=== PATIENT | male | born 1940 | race Caucasian/White ===

== ENCOUNTER 2019-01-22 06:34 | Observation (INO) | payer MEDICARE ==
[2019-01-20 10:30] VITALS: BP 143/74
[2019-01-20 10:58] LABS: BASOPHILS % (AUTO) 0.4 % (0.0-5.0); EOSINOPHILS % (AUTO) 1.8 % (0.0-8.0); LYMPHOCYTES % (AUTO) 17.4 % (21.0-51.0); MEAN CORPUSCULAR HEMOGLOBIN 26.2 pg (27.0-33.0); MEAN CORPUSCULAR HGB CONC 32.1 g/dL (32.0-36.0); MEAN CORPUSCULAR VOLUME 81.6 fL (79-99); MONOCYTES % (AUTO) 9.4 % (3.0-13.0); PLATELET COUNT (AUTO) 216 K/uL (130-400); RED BLOOD CELL COUNT(AUTO) 5.02 MIL/uL (4.50-6.20); RED CELL DISTRIBUTION WIDTH 15.7 % (11.0-15.5); WHITE BLOOD COUNT (AUTO) 4.9 K/uL (4.8-10.8)
[2019-01-20 11:01] LABS: BILIRUBIN,URINE Negative (NEGATIVE); COLOR,URINE Yellow (YELLOW); GLUCOSE, URINE (UA) 250 mg/dL (NEGATIVE); KETONES,URINE Negative (NEGATIVE); LEUKOCYTE ESTERASE ,URINE Moderate (NEGATIVE); NITRATE,URINE Negative (NEGATIVE); OCCULT BLOOD,URINE Negative (NEGATIVE); PH,URINE 5.5 (5.0-8.0); PROTEIN,URINE Negative (NEGATIVE); UROBILINOGEN,URINE 0.2 mg/dL (0.2-1.0)
[2019-01-20 11:04] LABS: APPEARANCE,URINE CLEAR (CLEAR)
[2019-01-20 11:08] LABS: CREATININE 1.2 mg/dL (0.5-1.5); POTASSIUM 4.8 mmol/L (3.5-5.1)
[2019-01-20 11:35] LABS: INR 0.96 (0.85-1.15); PARTIAL THROMBOPLASTIN TIME 26.8 SEC (26.3-35.5); PROTHROMBIN TIME 10.1 SEC (9.6-11.6)
[~2019-01-22] VITALS: Ht 177.8 cm; Wt 131.6 kg
[2019-01-22] VITALS (12 sets, daily range): BP systolic 125–180; BP diastolic 63–105
[~2019-01-22 06:34] MED LIST: CYAN10007 IJ; DIPH25 PO; LISI-613 PO; METF-444 PO; PRED20TA3 PO; RIVA20TA PO; TRIA10.8 NS; [UNRECOGNIZED DRUG - OTHER] SL; vitamin b complex SL
--- NOTE | 2019-01-22 06:38 | NUR ---
PRE-PROCEDURE RECEIVED TO DAY 8 VIA WALKING WITH CANE FOR [facility]. CONNECTED TO CONTINUOUS CARDIOPULMONARY MONITORING. SIDE RAILS UP X2, BED IN LOWEST POSITION, CALL LIGHT W/IN REACH. Addendum: 01/22/19 at 0924 by DAVIAN OTERO RN RN AWAKE IN NO ACUTE DISTRESS. DENIES PAIN.
[2019-01-22] MEDS ORDERED: SODIUM CHLORIDE 0.9% 1000ML 1,000 ML IV ONE (07:31)
[2019-01-22] MEDS ORDERED: METO-408 PO (08:40)
[2019-01-22] MEDS ORDERED: DiphenhydrAMINE HCL 50 MG/ML VIAL ONE (12:13)
[2019-01-22] MEDS ORDERED: METHYLPREDNISOLONE SOD SUCC 125MG/2ML VIAL ONE (12:14)
--- NOTE | 2019-01-22 12:20 | NUR ---
PROCEDURE TRANSFERRED TO [place] VIA BED BY BIRGIT VOGT.
[2019-01-22] MEDS ORDERED: LIDOCAINE HCL 2% 20ML ONE (12:27)
[2019-01-22] MEDS ORDERED: NITROGLYCERIN 5 MG/ML 10 ML VIAL IV ONE (12:27)
[2019-01-22] MEDS ORDERED: IOHEXOL-350 50ML VIAL IV ONE (12:27)
[2019-01-22] MEDS ORDERED: HEPARIN SODIUM 1000UNIT/ML 10ML VIAL ONE (12:27)
[2019-01-22] MEDS ORDERED: IOHEXOL 350 MG/ML 100ML INFUS..BTL IV ONE (12:27)
[2019-01-22] MEDS ORDERED: SODIUM BICARB 50MEQ 50ML VIAL ONE (12:27)
[2019-01-22] MEDS ORDERED: MEPERIDINE-PF 25 MG/ML SYG ONE ×2 (12:41→13:12)
[2019-01-22] MEDS ORDERED: MIDAZOLAM HCL 1 MG/ML 2ML VIAL ONE ×2 (12:41→13:12)
[2019-01-22] MEDS ORDERED: ATROPINE SULFATE 0.1 MG/ML 10 ML SYG IVP ONE (13:25)
[2019-01-22] MEDS ORDERED: ASPIRIN 325MG EC TAB 325 MG TABLET.DR PO ONE (13:46)
[2019-01-22] MEDS ORDERED: CLOPIDOGREL BISULFATE 300 MG TAB ONE (13:46)
[2019-01-22] MEDS: SODIUM CHLORIDE 0.9% 1000ML 1,000 ML IV SCH ×2 (13:52→17:07)
[2019-01-22] MEDS ORDERED: ALPRAZOLAM 0.5 MG TABLET PO PRN (14:00)
[2019-01-22] MEDS ORDERED: ACETAMINOPHEN-CODEINE 300/30MG TAB PO PRN ×2 (14:00)
[2019-01-22] MEDS ORDERED: CLOPIDOGREL BISULFATE 300 MG TAB PO SCH (14:00)
[2019-01-22] MEDS ORDERED: ONDANSETRON HCL 4 MG/2 ML VIAL IVP PRN (14:00)
[2019-01-22] MEDS ORDERED: TEMAZEPAM 30 MG CAP PO PRN (14:00)
[2019-01-22] MEDS ORDERED: NITROGLYCERIN 50 MG/D5% WATER 1 BOT IV PRN (14:00)
--- NOTE | 2019-01-22 14:25 | NUR ---
EDUCATION UPDATED THAT PT WOULD BE ADMITTED TO ROOM 220.
--- NOTE | 2019-01-22 14:52 | NUR ---
RECEIVED TO ROOM 220 VIA BED ACCOMPANIED BY Evgeny ACOSTA RN. PT. AAOX3, RESP.'S EVEN AND UNLABORED. DENIES ANY C/O SOB, DENIES ANY CURRENT PAIN. INSTRUCTED ON STRICT BR PER MD ORDERS, VERBALIZED UNDERSTANDING. RIGHT GROIN WITH DRSG IN PLACE, D/I; AREA SOFT, NO ECCHYMOSIS OR HEMATOMA NOTED. BED PLACED IN REVERSE [place] POSITION FOR PT. COMFORT. CALL LIGHT WITHIN REACH, VERBALIZED ABILITY TO USE.
[2019-01-22 15:24] LABS: CHOLESTEROL 193 mg/dL (<200); HDL CHOLESTEROL 35 mg/dL (29-71); LDL DIRECT 157 mg/dL (0-99); TRIGLYCERIDES 62 mg/dL (30-200)
--- NOTE | 2019-01-22 15:30 | NUR ---
CONT.'S ON BR W/O C/O. RIGHT GROIN UNCHANGED. CALL LIGHT WITHIN REACH.
--- NOTE | 2019-01-22 16:10 | NUR ---
LATE ENTRY: -NOTIFIED DR. GAMBINO, AT NURSE'S STATION, RE:PT. ADMITTED TO HIS SERVICES. DR. GAMBINO VERBALIZED UNDERSTANDING AND STATES WILL BE IN TO SEE PT.
--- NOTE | 2019-01-22 16:30 | NUR ---
CONT.'S ON BR. RIGHT GROIN UNCHANGED. CALL LIGHT WITHIN REACH.
[2019-01-22] MEDS ORDERED: HYDRALAZINE HCL 20 MG/ML VIAL IV PRN (16:45)
--- NOTE | 2019-01-22 17:10 | NUR ---
BED CONT.'S IN REVERSE [place] POSITION. INC. HOB TO 15 DEGREES FOR DINNER. ASSISTED TO SET UP FOR DINNER BY SANDRINE OLIVEROS. CALL LIGHT WITHIN REACH.
[2019-01-22] MEDS ORDERED: DOCU250C14 PO ×2 (18:46)
--- NOTE | 2019-01-22 20:00 | NUR ---
ASSESSMENT PATIENT IS AAOX3. PATIENT DENIES CHEST PAIN AND SHORTNESS OF BREATH. ON ROOM AIR. RESPIRATIONS UNLABORED. A-FIB HR 70'S TO 80'S. S/P LEFT HEART CATH. RT. GROIN SOFT. DRESSING MARKED - UNCHANGED. NO HEMATOMA NOTED. BEDREST UNTIL 2029. ADVISED PATIENT NOT TO BEND OR LIFT RT LEG. PATIENT VERBALIZED UNDERSTANDING. SEE DOCUMENTATION FOR FULL ASSESSMENT. CALL LIGHT WITHIN REACH. INSTRUCTED PATIENT TO CALL IF ASSISTANCE IS NEEDED.
--- NOTE | 2019-01-22 20:30 | NUR ---
BEDREST OVER. SITE SOFT. NO HEMATOMA. NOTED. PATIENT ASSISTED TO BATHROOM BY RADHA. PCP.
[2019-01-22] MEDS ORDERED: SIMVASTATIN 10 MG TABLET PO SCH (21:00)
[2019-01-22] MEDS: INSULIN HUMULIN R 100 UNIT/ML 3ML SQ SCH (22:03)
--- NOTE | 2019-01-23 02:15 | NUR ---
RT. ELZA BARAJAS.
[2019-01-23] MEDS: SODIUM CHLORIDE 0.9% 1000ML 1,000 ML IV SCH (03:12)
[2019-01-23 03:18] VITALS: BP 122/62
[2019-01-23 03:49] LABS: HEMATOCRIT 37.5 % (42-54); MEAN CORPUSCULAR HEMOGLOBIN 26.6 pg (27.0-33.0); MEAN CORPUSCULAR HGB CONC 33.1 g/dL (32.0-36.0); MEAN CORPUSCULAR VOLUME 80.5 fL (79-99); PLATELET COUNT (AUTO) 215 K/uL (130-400); RED BLOOD CELL COUNT(AUTO) 4.66 MIL/uL (4.50-6.20); RED CELL DISTRIBUTION WIDTH 15.9 % (11.0-15.5); WHITE BLOOD COUNT (AUTO) 9.2 K/uL (4.8-10.8)
[2019-01-23 04:00] LABS: CREATININE 1.2 mg/dL (0.5-1.5); POTASSIUM 4.6 mmol/L (3.5-5.1)
[2019-01-23] MEDS: INSULIN HUMULIN R 100 UNIT/ML 3ML SQ SCH ×2 (07:28→12:01)
[2019-01-23 07:47] VITALS: BP 128/66
--- NOTE | 2019-01-23 08:30 | NUR ---
RESTING IN BED WITH HOB AT 30 DEGREES, RESP.'S EVEN AND UNLABORED. AAOX3. DENIES ANY C/O SOB, DENIES ANY CURRENT PAIN. RIGHT GROIN SOFT, NO ECCHYMOSIS OR HEMATOMA NOTED. FEET WARM, PP'S (+) BILATERALLY; DENIES ANY C/O NUMBNESS OR TINGLING TO FEET. COMPLETE ASSESSMENT DONE. CALL LIGHT WITHIN REACH, VERBALIZED ABILITY TO USE. BED LOW, SIDE RAILS UP X2.
[2019-01-23] MEDS ORDERED: CLOPIDOGREL BISULFATE 75 MG TAB PO SCH (09:00)
[2019-01-23] MEDS ORDERED: ASPIRIN 81MG TAB.CHEW PO SCH (09:00)
[2019-01-23] MEDS ORDERED: PANTOPRAZOLE SODIUM 40 MG TABLET.DR PO SCH (09:00)
[2019-01-23] MEDS ORDERED: DOCUSATE NA 100MG/10ML UDCUP PO SCH (09:30)
[2019-01-23] MEDS ORDERED: METOPROLOL TARTRATE 25 MG TAB PO SCH (09:30)
[2019-01-23] MEDS ORDERED: VITAMIN B COMPLEX 1 CAPSULE PO SCH (09:30)
[2019-01-23] MEDS ORDERED: DOCUSATE NA 100MG/10ML UDCUP PO PRN (09:30)
[2019-01-23] MEDS ORDERED: FLUTICASONE PROPIONATE 50MCG/SPRAY 16 GM BOTTLE EN SCH (09:45)
[2019-01-23 11:50] VITALS: BP 148/74
--- NOTE | 2019-01-23 12:05 | NUR ---
SITTING UP EATING LUNCH, W/O C/O. CALL LIGHT WITHIN REACH.
--- NOTE | 2019-01-23 13:40 | NUR ---
DR. Chris SIMS IN ROOM SPEAKING WITH PT. QUESTIONS ANSWERED BY DR. SIMS. SPOUSE AND VISITOR AT BEDSIDE.
[2019-01-23] MEDS ORDERED: [UNRECOGNIZED DRUG - OTHER] SL SCH (14:00)
--- NOTE | 2019-01-23 14:25 | NUR ---
HL REMOVED, CATHETER INTACT. DISCHARGE INSTRUCTIONS GIVEN, VERBALIZED UNDERSTANDING.
--- NOTE | 2019-01-23 14:40 | NUR ---
DISCHARGED HOME VIA W/C WITH BELONGINGS ACCOMPANIED BY Andreas ARAGON, PCP AND PT.'S FAMILY MEMBERS.
[2019-01-24] MEDS ORDERED: LISINOPRIL 20 MG TABLET PO SCH (09:00)
[2019-02-22] MEDS ORDERED: CYANOCOBALAMIN (VITAMIN B-12) 1000 MCG/ML 1ML VIAL IM SCH (09:00)
== END 2019-01-23 15:05 | disposition home or self-care (01) ==
LOC: DAH 06:34 → DAHIP 06:35 → DAH 06:35 → 2DH 15:11
PROVIDERS: ADMIT Internal Medicine; ATTEND Internal Medicine
DX: I25.119 Atherosclerotic heart disease of native coronary artery with unspecified angina pectoris (principal); E11.9 Type 2 diabetes mellitus without complications; E78.5 Hyperlipidemia, unspecified; I48.2 Chronic atrial fibrillation; I11.0 Hypertensive heart disease with heart failure; I50.42 Chronic combined systolic (congestive) and diastolic (congestive) heart failure; Z85.46 Personal history of malignant neoplasm of prostate; Z79.899 Other long term (current) drug therapy; Z88.8 Allergy status to other drugs, medicaments and biological substances; Z88.0 Allergy status to penicillin
CPT/HCPCS: 36415 ×3; 71045; 80048 ×2; 80061; 81003; 82948 ×5; 85025; 85027; 85610; 85730; 93005; 93458; 96372 ×2; 96374; A4606; C1725; C1760; C1769; C1874 ×3; C1887; C1894; C9600; G0378 ×32; J0360; J1200; J1644 ×2; J1815 ×2; J2175 ×2; J2250 ×2; J2930; J3490 ×3; J7030 ×2; Q9965 ×2; Q9967 ×2; 99156; 99157; J0461

== ENCOUNTER 2019-03-16 07:16 | Observation (INO) | payer MEDICARE ==
[2019-03-12 12:03] LABS: BASOPHILS % (AUTO) 0.3 % (0.0-5.0); EOSINOPHILS % (AUTO) 2.1 % (0.0-8.0); HEMATOCRIT 32.3 % (42-54); LYMPHOCYTES % (AUTO) 14.4 % (21.0-51.0); MEAN CORPUSCULAR HEMOGLOBIN 26.4 pg (27.0-33.0); MEAN CORPUSCULAR HGB CONC 32.4 g/dL (32.0-36.0); MEAN CORPUSCULAR VOLUME 81.5 fL (79-99); MONOCYTES % (AUTO) 11.5 % (3.0-13.0); NEUTROPHILS % (AUTO) 71.7 % (40.0-77.0); PLATELET COUNT (AUTO) 219 K/uL (130-400); RED BLOOD CELL COUNT(AUTO) 3.96 MIL/uL (4.50-6.20); RED CELL DISTRIBUTION WIDTH 15.6 % (11.0-15.5); WHITE BLOOD COUNT (AUTO) 5.3 K/uL (4.8-10.8)
[2019-03-12 12:10] LABS: BILIRUBIN,URINE NEGATIVE (NEGATIVE); COLOR,URINE YELLOW (YELLOW); GLUCOSE, URINE (UA) 250 mg/dL (NEGATIVE); KETONES,URINE NEGATIVE (NEGATIVE); LEUKOCYTE ESTERASE ,URINE NEGATIVE (NEGATIVE); NITRATE,URINE NEGATIVE (NEGATIVE); OCCULT BLOOD,URINE NEGATIVE (NEGATIVE); PROTEIN,URINE TRACE mg/dL (NEGATIVE)
[2019-03-12 12:15] LABS: INR 0.98 (0.85-1.15); PARTIAL THROMBOPLASTIN TIME 26.6 SEC (26.3-35.5); PROTHROMBIN TIME 10.3 SEC (9.6-11.6)
[2019-03-12 12:17] LABS: CREATININE 1.1 mg/dL (0.5-1.5); POTASSIUM 5.1 mmol/L (3.5-5.1)
[2019-03-12 12:24] VITALS: BP 144/70
[2019-03-12 12:46] LABS: APPEARANCE,URINE CLEAR (CLEAR); BACTERIA,URINE Rare /HPF (None Seen); RBC,URINE 0-1 /HPF (0-1); SQUAMOUS EPITHELIAL CELL,UR 0-2 /HPF (0-2); WBC,URINE 0-1 /HPF (0-1)
--- NOTE | 2019-03-15 11:14 | NUR ---
IODINE ALLERGY DASHA GUTIERREZ NOTIFIED OF PT'S IODINE ALLERGY, PRESCRIBED PRE MED TO TAKE AT HOME. MAY GIVE SOLU MEDROL 125MG IVP X1 AND BENADRYL 50MG IVP X1 FIRESTOPPER TECHNICIAN TO VIDEO EFFECTS EDITOR.
[~2019-03-16] VITALS: Ht 180.3 cm; Wt 126.9 kg
[2019-03-16] VITALS (22 sets, daily range): BP systolic 120–195; BP diastolic 57–105
[~2019-03-16 07:16] MED LIST changes: +ASPI-555 PO; +CLOP75TA14 PO; -CYAN10007 IJ; -DIPH25 PO; +DIPH25CA85 PO; +DOCU-272 PO; +DiphenhydrAMINE HCL 50 MG/ML VIAL IVP SCH; -METF-444 PO; +METF500T7 PO; +METHYLPREDNISOLONE SOD SUCC 125MG/2ML VIAL IVP SCH; +METO-408 PO; -RIVA20TA PO; +ROSU5TAB11 PO; +SODIUM CHLORIDE 0.9% 500ML 500 ML IV SCH; -TRIA10.8 NS; -[UNRECOGNIZED DRUG - OTHER] SL; -vitamin b complex SL
[2019-03-16] MEDS ORDERED: SODIUM CHLORIDE 0.9% 1000ML 1,000 ML IV ONE (07:44)
[2019-03-16] MEDS ORDERED: INSULIN HUMULIN R 100 UNIT/ML 3ML ONE (08:11)
[2019-03-16] MEDS ORDERED: METHYLPREDNISOLONE SOD SUCC 125MG/2ML VIAL ONE (08:36)
[2019-03-16] MEDS ORDERED: DiphenhydrAMINE HCL 50 MG/ML VIAL ONE (08:37)
[2019-03-16] MEDS ORDERED: IOHEXOL 350 MG/ML 100ML INFUS..BTL IV ONE (10:44)
[2019-03-16] MEDS ORDERED: HEPARIN SODIUM 1000UNIT/ML 10ML VIAL ONE (10:44)
[2019-03-16] MEDS ORDERED: SODIUM BICARB 50MEQ 50ML VIAL ONE (10:44)
[2019-03-16] MEDS ORDERED: IOHEXOL-350 50ML VIAL IV ONE (10:44)
[2019-03-16] MEDS ORDERED: NITROGLYCERIN 5 MG/ML 10 ML VIAL IV ONE (10:44)
[2019-03-16] MEDS ORDERED: LIDOCAINE HCL 2% 20ML ONE (10:44)
[2019-03-16] MEDS ORDERED: MIDAZOLAM HCL 1 MG/ML 2ML VIAL ONE (11:26)
[2019-03-16] MEDS ORDERED: FENTANYL CITRATE PF 50 MCG/1 ML 2ML VIAL ONE (11:27)
--- NOTE | 2019-03-16 11:28 | NUR ---
PROCEDURE PT TAKEN TO VIDEO RECORDER MECHANIC FOR LHC, NO DISTRESS NOTED. SPOUSE AT BEDSIDE.
[2019-03-16] MEDS: INSULIN HUMULIN R 100 UNIT/ML 3ML SQ SCH ×3 (11:30→22:38)
[2019-03-16] MEDS ORDERED: PROPOFOL 1000 MG/100 ML 100 ML IV ONE (11:30)
[2019-03-16] MEDS ORDERED: ROCURONIUM BROMIDE 10MG/1ML 5ML VL ONE (11:51)
[2019-03-16] MEDS ORDERED: KETAMINE HCL 100 MG/ML 5ML VIAL IJ ONE (12:00)
[2019-03-16] MEDS ORDERED: ATROPINE SULFATE 0.1 MG/ML 10 ML SYG IVP ONE (12:02)
[2019-03-16] MEDS ORDERED: IOHEXOL-350 75 ML VIAL IV ONE (12:33)
[2019-03-16] MEDS ORDERED: GLYCOPYRROLATE 1 MG/5 ML SYRINGE ONE (12:51)
[2019-03-16] MEDS ORDERED: NEOSTIGMINE 5MG/5ML SYR IV ONE (12:51)
[2019-03-16] MEDS ORDERED: ALPRAZOLAM 0.5 MG TABLET PO PRN (13:00)
[2019-03-16] MEDS ORDERED: NITROGLYCERIN 50 MG/D5% WATER 1 BOT IV PRN (13:00)
[2019-03-16] MEDS ORDERED: ONDANSETRON HCL 4 MG/2 ML VIAL IVP PRN (13:00)
[2019-03-16] MEDS ORDERED: TEMAZEPAM 30 MG CAP PO PRN (13:00)
[2019-03-16] MEDS ORDERED: ACETAMINOPHEN-CODEINE 300/30MG TAB PO PRN ×2 (13:00)
[2019-03-16] MEDS ORDERED: SODIUM CHLORIDE 0.9% 1000ML 1,000 ML IV SCH (13:00)
--- NOTE | 2019-03-16 13:21 | NUR ---
1321 - RECEIVED PT FROM FISH PACKER, R GROIN SITE INTACT, NO SWELLING NOR HEMATOMA NOTED. PT IN SUPINE POSITION, RESTING COMFORTABLY, RESP EVEN AND UNLABORED. Addendum: 03/16/19 at 1356 by RADHA BARILLAS RN RN Amended: Links added.
--- NOTE | 2019-03-16 15:29 | NUR ---
ADVISED PT'S SPOUSE (TEOFILO) TO TAKE PT'S MEDICATIONS HOME. STATED SHE WOULD THIS EVENING.
--- NOTE | 2019-03-16 16:40 | NUR ---
DR DINH PAGED FOR 2 SECOND PAUSE THAT PATIENT HAD AT 1623; HR 50-60S, AFIB; TERESITA CALLED BACK; ORDER TO HOLD LOPRESSOR GIVEN; ALSO NOTIFIED OF ELEVATED SBP IN 160-170S RANGE; HYDRALAZINE ORDER GIVEN
[2019-03-16] MEDS ORDERED: HYDRALAZINE HCL 20 MG/ML VIAL ONE (17:13)
[2019-03-16] MEDS ORDERED: HYDRALAZINE HCL 20 MG/ML VIAL IV PRN (17:15)
[2019-03-16] MEDS ORDERED: LISINOPRIL 20 MG TABLET PO SCH (17:15)
[2019-03-16] MEDS: METFORMIN HCL 500 MG TAB.SR.24H PO SCH (17:23)
[2019-03-16] MEDS: METOPROLOL TARTRATE 25 MG TAB PO SCH (19:35)
--- NOTE | 2019-03-16 20:45 | NUR ---
ASSESSMENT PATIENT IS AAOX3. S/P LEFT HEART CATH. BEDREST OVER. RT. GROIN SOFT WITHOUT BLEEDING OR HEMATOMA. PEDAL PULSES PALPABLE. WILL CONTINUE TO MONITOR. CALL LIGHT WITHIN REACH.
[2019-03-16] MEDS: DOCUSATE SODIUM 100 MG CAP PO SCH (21:00)
[2019-03-16] MEDS ORDERED: ATORVASTATIN CALCIUM 10 MG TABLET PO SCH (21:00)
--- NOTE | 2019-03-16 21:30 | NUR ---
RT. GROIN CHECKED FREQUENTLY. SITE SOFT WITHOUT BLEEDING OR HEMATOMA. PEDAL PULSES PALPABLE.
--- NOTE | 2019-03-16 23:00 | NUR ---
RT GROIN STABLE. WILL CONTINUE TO MONITOR.
--- NOTE | 2019-03-17 02:00 | NUR ---
RT. GROIN CONTINUES TO BE SOFT WITHOUT BLEEDING OR HEMATOMA.
[2019-03-17 03:00] VITALS: BP 140/89
[2019-03-17 04:13] LABS: HEMATOCRIT 30.7 % (42-54); MEAN CORPUSCULAR HGB CONC 34.1 g/dL (32.0-36.0); NUCLEATED RED BLOOD CELLS 0.1 % (0.0-0.19); PLATELET COUNT (AUTO) 211 K/uL (130-400); RED BLOOD CELL COUNT(AUTO) 3.89 MIL/uL (4.50-6.20); WHITE BLOOD COUNT (AUTO) 9.6 K/uL (4.8-10.8)
[2019-03-17 04:25] LABS: CREATININE 1.1 mg/dL (0.5-1.5); POTASSIUM 4.4 mmol/L (3.5-5.1)
[2019-03-17] MEDS: INSULIN HUMULIN R 100 UNIT/ML 3ML SQ SCH ×2 (06:10→11:30)
[2019-03-17] MEDS ORDERED: PANTOPRAZOLE SODIUM 40 MG TABLET.DR PO SCH (07:30)
[2019-03-17 07:46] VITALS: BP 143/74
[2019-03-17] MEDS: METFORMIN HCL 500 MG TAB.SR.24H PO SCH (08:00)
[2019-03-17] MEDS: DOCUSATE SODIUM 100 MG CAP PO SCH (08:57)
[2019-03-17] MEDS: METOPROLOL TARTRATE 25 MG TAB PO SCH (08:57)
[2019-03-17] MEDS ORDERED: LISINOPRIL 20 MG TABLET PO SCH (09:00)
[2019-03-17] MEDS ORDERED: CLOPIDOGREL BISULFATE 75 MG TAB PO SCH (09:00)
[2019-03-17] MEDS ORDERED: ASPIRIN 81 MG EC TAB PO SCH (09:00)
[2019-03-17 11:11] VITALS: BP 148/92
[2019-03-17 15:27] VITALS: BP 138/57
--- NOTE | 2019-03-17 16:00 | NUR ---
PATIENT DISCHARGED HOME. PIV AND TELEPACK REMOVED. DISCHARGE INSTRUCTIONS GIVEN BY BIRGIT EDDY. ALL QUESTIONS AND CONCERNS ANSWERED. NO NEW PRESCRIPTIONS GIVEN.
== END 2019-03-17 16:15 | disposition home or self-care (01) ==
LOC: DAH 07:16 → DAHIP 07:17 → DAH 07:17 → 2DH 14:24
PROVIDERS: ADMIT Internal Medicine Pulmonary Disease; ATTEND Internal Medicine Pulmonary Disease
DX: I25.119 Atherosclerotic heart disease of native coronary artery with unspecified angina pectoris (principal); I10 Essential (primary) hypertension; E11.9 Type 2 diabetes mellitus without complications; I48.2 Chronic atrial fibrillation; E66.9 Obesity, unspecified; G47.33 Obstructive sleep apnea (adult) (pediatric); E78.5 Hyperlipidemia, unspecified; I25.5 Ischemic cardiomyopathy; Z85.46 Personal history of malignant neoplasm of prostate; Z96.653 Presence of artificial knee joint, bilateral; Z98.84 Bariatric surgery status; Z90.49 Acquired absence of other specified parts of digestive tract; Z88.0 Allergy status to penicillin; Z88.8 Allergy status to other drugs, medicaments and biological substances; Z79.01 Long term (current) use of anticoagulants; Z79.899 Other long term (current) drug therapy
CPT/HCPCS: 36415 ×3; 71045; 80048 ×2; 80061; 81001; 82948 ×6; 85025; 85027; 85347 ×2; 85610; 85730; 93005 ×2; 93458; 96372 ×2; 96374; 96375; A4606; C1725; C1760; C1769 ×2; C1874; C1887 ×2; C1894 ×3; C9600; G0378 ×33; J0360; J1200; J1644 ×3; J1815 ×4; J2704; J2710; J2930; J3010; J3490 ×6; J7030 ×2; Q9965; Q9967 ×3; J0461; J2250